=== PATIENT | male | born 1980 | race Caucasian/White ===

== ENCOUNTER 2020-07-28 10:43 | Emergency (ER) | payer BC, SELFPAY ==
--- NOTE | ~2020-07-28 | CT_ITS ---
EXAMINATION: CT abdomen pelvis w con DATE: 07/28/2020 13:10 INDICATION: Abdominal pain and vomiting TECHNIQUE: Computed tomography (CT) of the abdomen and pelvis was performed with 100 mL Omnipaque-350 intravenous contrast. Automated exposure control and iterative reconstruction technique were employe d. The dose-length product was 482.44 mGy-cm. COMPARISON: None FINDINGS: Lung bases are clear. Heart size is normal. No pericardial or pleural effusion. There are few small w ell-defined low-attenuation hepatic cysts the largest measuring 1.3 cm in the right hepatic lobe. Sma ll region of focal hepatic steatosis along the ligamentum teres. Gallbladder, spleen, pancreas, bilat eral adrenal glands and kidneys are normal. There is mild colonic diverticulosis with a sigmoid predo minance. There is no adjacent inflammatory change to suggest diverticulitis. Small bowel and appendi x are normal. Bladder is normal. No free intraperitoneal gas or fluid. No pathologically enlarged abd ominal/pelvic lymphadenopathy. Minimal to mild scattered degenerative skeletal changes in the spine, bilateral hips and sacroiliac joints. Small bilateral fat-containing inguinal hernias. IMPRESSION: 1. No acute intra-abdominal/pelvic process. Reviewed, dictated and finalized at location A.
[2020-07-28 10:47] VITALS: BP 131/73; PULSE 83; RESP 18; TEMP 36.6; O2SAT 98
[2020-07-28 11:10] LABS: Basophils Percent Auto 0.6 % (0.2-1.2); Eosinophils Absolute Auto 0.3 K/mm3 (0-0.3); Eosinophils Percent Auto 4.9 % (0-4.4); Hematocrit 51.1 % (42.0-52.0); Hemoglobin 16.9 g/dL (14.0-18.0); Immature Granulocyte Absolute 0.02 K/mm3 (0.00-0.031); Immature Granulocyte Percent A 0.3 % (0-0.5); Lymphocytes Absolute Auto 1.59 K/mm3 (0.9-3.2); Lymphocytes Percent Auto 22.7 % (18.3-44.2); Mean Corpuscular HGB Conc 33.1 g/dl (32-36); Mean Corpuscular Hemoglobin 30.1 pg (26-34); Mean Corpuscular Volume 91.1 fl (80-100); Mean Platelet Volume 11.4 fl (7.4-10.4); Monocytes Absolute Auto 0.6 K/mm3 (0.1-0.6); Monocytes Percent Auto 8.6 % (2.6-8.5); Neutrophils Absolute Auto 4.4 K/mm3 (1.3-6.7); Neutrophils Percent Auto 62.9 % (45.5-73.1); Platelet Count Result 217 k/mm3 (150-375); Red Blood Count 5.61 M/mm3 (4.6-6.20); Red Cell Distribution Width 13.1 % (11.5-14.5)
[2020-07-28 11:17] LABS: Add Urine Microscopic? YES; Appearance Urine Clear (Clear); Bilirubin Urine Negative (Negative); Blood Urine 1+ (Negative); Color Urine Yellow (Yellow); Glucose Urine UA Negative (Negative); Ketones Urine 1+ mg/dL (Negative); Leukocyte Esterase Ur Negative LEU/UL (Negative); Mucus Urine Heavy /lpf; Nitrate Urine Negative (Negative); Protein Urine Negative (Negative); Specific Grav Ur 1.027 (1.001-1.035); Squamous Epithelial Cell Urine Rare /hpf (Few); Urobilinogen Urine Negative mg/dL (<2.0); WBC Urine 0-3 /hpf
[2020-07-28 11:21] LABS: Alanine Aminotransferase 22 U/L (4-50); Albumin Level 5.4 g/dL (3.5-5.1); Alkaline Phosphatase 56 U/L (38-126); Anion Gap 10 mmol/L (8-16); Aspartate Amino Transferase 29 U/L (17-59); Bilirubin,Total 1.4 mg/dL (0.2-1.3); Blood Urea Nitrogen 12 mg/dL (9-20); Calcium 10.1 mg/dL (8.4-10.2); Carbon Dioxide 31 mmol/L (22-30); Chloride 101 mmol/L (98-107); Estimated CRCL calculation 94 ml/min; Estimated Glomerular Filt Rate > 60; Glucose 121 mg/dL (75-110); Lipase 109 U/L (23-300); Potassium 3.9 mmol/L (3.4-5.0); Sodium 142 mmol/L (137-145)
[2020-07-28 11:33] VITALS: BP 136/92; PULSE 71; RESP 16; O2SAT 98
--- NOTE | 2020-07-28 13:46 | ED.GENADULT ---
HPI - General Adult General Chief complaint: Abdominal Pain Stated complaint: abd pain, vomiting Time Seen by Provider: 07/28/20 12:12 Source: patient History of Present Illness HPI narrative: Patient is a 39 y/o male complaining of epigastric abdominal pain, nausea and decreased appetite for about 1 week. He describes his pain as a discomfort and rates it as 4/10. There is no radiation. He states that laying down helps with his pain somewhat. He has no vomiting. He had some diarrhea after taking a laxative. Related Data Home Medications Medication Instructions Recorded Confirmed No Home Medications 07/28/20 07/28/20 Allergies Allergy/AdvReac Type Severity Reaction Status Date / Time No Known Allergies Allergy Verified 07/28/20 10:50 Review of Systems Constitutional: Constitutional: Denies chills, Denies fever(s), Denies headache(s) and Denies weakness Eyes: Eyes: Denies blurry vision ENT: Denies headache(s) and Denies neck pain Cardiovascular: Cardiovascular: Denies chest pain and Denies dyspnea Respiratory: Respiratory: Denies cough and Denies dyspnea Gastrointestinal: Gastrointestinal: Reports abdominal pain, Reports diarrhea, Reports nausea and Denies vomiting Genitourinary: Genitourinary: Denies hematuria and Denies dysuria Musculoskeletal: Musculoskeletal: Denies back pain and Denies neck pain Neurologic: Denies headache(s) and Denies weakness FOR[facility]LY [facility], [facility] Social History Social History Gender identity (if verbalized by the patient): Male Exam Const: General: no acute distress and well developed Orientation/consciousness: oriented to person, oriented to place, oriented to time and patient oriented x3 HENMT: Head: normocephalic Ears: external ears normal General nose exam: Normal external nose present Eyes: General: appearance normal, both eyes and all related structures Conjunctivae: conjunctivae normal Neck: Neck: normal visual inspection and full ROM Chest: Chest palpation & inspection: normal inspection of the chest and no tenderness Resp: Effort & Inspection: normal respiratory effort Auscultation: clear to auscultation bilaterally Cardio: Rate: regular rate Rhythm: regular rhythm GI: GI Palp: No abdominal tenderness and Yes Soft to palpation Skin: General skin exam: normal color and turgor normal Neuro: General: oriented to person, oriented to place, oriented to time and patient oriented x3 Cognition (Neuro): normal cognition Extrem: General: normal to inspection, full ROM and no pedal edema Psych: Appearance: grossly normal Mental Status: mental status grossly normal Affect: normal affect Course Consultations Consultation #1: Discussed with Dr. Nogueira, who agrees with plan for discharge and will follow up. Date: 07/28/20 Time: 14:10 Vital Signs Vital signs: Vital Signs Temperature 36.6 C 07/28/20 10:47 Pulse Rate 83 07/28/20 10:47 Respiratory Rate 18 07/28/20 10:47 Blood Pressure 131/73 07/28/20 10:47 Pulse Oximetry 98 07/28/20 10:47 Temperature 36.6 C 07/28/20 10:47 Pulse Rate 71 07/28/20 11:33 Respiratory Rate 16 07/28/20 11:33 Blood Pressure 136/92 H 07/28/20 11:33 Pulse Oximetry 98 07/28/20 11:33 Medical Decision Making Vital Signs Vital Signs: Vital Signs Temperature 36.6 C 07/28/20 10:47 Pulse Rate 83 07/28/20 10:47 Respiratory Rate 18 07/28/20 10:47 Blood Pressure 131/73 07/28/20 10:47 Pulse Oximetry 98 07/28/20 10:47 Temperature 36.6 C 07/28/20 10:47 Pulse Rate 71 07/28/20 11:33 Respiratory Rate 16 07/28/20 11:33 Blood Pressure 136/92 H 07/28/20 11:33 Pulse Oximetry 98 07/28/20 11:33 Lab Data Result diagrams: 07/28/20 11:00 07/28/20 11:00 Labs: Lab Results 07/28/20 07/28/20 07/28/20 Range/Units 11:00 11:00 11:00 WBC 7.0 (4.5-10.0) K/mm3 RBC 5.61 (4.6-6.20) M/mm3
[2020-07-28 14:32] VITALS: BP 111/66; PULSE 62; RESP 16; O2SAT 99
== END 2020-07-28 14:25 | disposition home or self-care (01) ==
PROVIDERS: General Practice; Emergency Provider Emergency Medicine; PCP Internal Medicine
DX: R10.13 Epigastric pain (principal)
CPT/HCPCS: 36415; 74177; 80053; 81001; 83690; 85025; 99284; Q9967